=== PATIENT | male | born 1965 | race Caucasian/White ===

== ENCOUNTER 2021-02-01 07:04 | Observation (INO) ==
[2021-02-01] MEDS ORDERED: ONDANSETRON INJ 2 MG/ML 2 ML VIAL IV STA (07:22)
[2021-02-01] MEDS ORDERED: SODIUM CHLORIDE 0.9% 1000ML 1,000 ML IV ONE ×2 (07:22→09:26)
[2021-02-01] MEDS ORDERED: MoRPHine SULFATE 10 MG/ML CARP/VIAL IV STA (07:22)
[2021-02-01 07:35] LABS: Basophils # (auto) 0.02 K/uL (0-0.2); Basophils % (auto) 0.1 %; Eosinophils # (auto) 0.01 K/uL (0-0.5); Eosinophils % (auto) 0.1 %; Hematocrit (blood only) 45.7 % (42-52); Immature Granulocytes # (auto) 0.02 K/uL (0.00-0.02); Immature Granulocytes % (auto) 0.1 %; Lymphocytes # (auto) 0.88 K/uL (1.2-3.4); Lymphocytes % (auto) 5.8 %; Mean Corpuscular Hemoglobin 32.5 pg (25-34); Mean Corpuscular Volume 92.9 fL (80-100); Mean Platelet Volume 10.1 fL (7.4-10.4); Monocytes % (auto) 3.3 %; Neutrophils # (auto) 13.87 K/uL (1.4-6.5); Neutrophils % (auto) 90.6 %; Platelet Count 250 K/uL (130-400); RDW Coefficient of Variation 13.8 % (11.5-14.5); RDW Standard Deviation 46.6 fL (36.4-46.3); Red Blood Count 4.92 M/uL (4.7-6.1)
[2021-02-01] MEDS ORDERED: MoRPHine SULFATE 4 MG/ML 1 ML CARP\\VIAL ONE (07:39)
[2021-02-01] MEDS ORDERED: MoRPHine SULFATE 2 MG/ML CARP ONE (07:39)
--- NOTE | 2021-02-01 07:44 | XRay Report ---
XR chest 1V portable CLINICAL HISTORY: Atypical chest pain. COMPARISON STUDY: Chest radiograph March 01, 2017.Z FINDINGS: Lung volumes are normal. There is no pneumothorax or pleural effusion. No consolidation or evidence for pulmonary edema. Cardiac size is normal. There is a suspected hiatal hernia. IMPRESSION: 1. No acute cardiopulmonary findings. 2. Suspected hiatal hernia. ACT 112: Negative or not required by law. Electronically signed by: Mat Ortega M.D. 02/01/2021 7:42 AM
--- NOTE | 2021-02-01 07:52 | Emergency Department Note ---
History of Present Illness General Chief complaint: Chest Pain Stated complaint: chest pain,hard to breathe Time Seen by Provider: 02/01/21 07:10 Source: patient Mode of arrival: ambulatory Limitations: no limitations History of Present Illness Maximum Pain Intensity: 10 This patient is a 55-year-old male who presents to the emergency department for evaluation of chest pain, abdominal pain and vomiting. Patient reports that his symptoms started last night, about 12 hours prior to arrival. He states that he was sitting on the couch when his symptoms started. He had eaten corned beef and cabbage for dinner. He initially developed nausea, then developed some pain in his chest/abdomen and shortness of breath. He reports that he has right- sided abdominal pain, left-sided chest pain and nausea/vomiting. He states that movement makes his pain worse. He rates his discomfort a 10/10. He states that he was feeling okay over the past few days up until yesterday evening. He denies any cardiac history but does report a family history of [place] in his father and grandfather. Patient is not a smoker. He drinks alcohol socially and uses marijuana on occasion. Most recent marijuana use was 1.5 weeks ago. Patient denies fevers, cough, diarrhea, headaches or neck pain. Home Medications Medication Instructions Recorded Confirmed Type No Known Home Medications 02/01/21 02/01/21 History Allergies Allergy/AdvReac Type Severity Reaction Status Date / Time No Known Allergies Allergy Unknown Verified 02/01/21 07:41 Past Med/Surg History Medical History No significant past medical history Surgical History History of eye removal Traumatic injury to right Social History Smoking Status: Never smoker Hx Alcohol Use: Yes (socially) Alcohol type: hard liquor Hx Substance Use: Yes Non-Prescribed Medications: Marijuana Preferred Language: Hungarian Communication Ability: Effective [employer] Required: No Beliefs That Will Affect Care: None Current Living Situation: Other Current Living Situation Comment: room mate Other Information That Helps Us Care for You: No Feels Safe at Home: Yes Safety Concerns: Feels Safe At This Time Assistive Devices: None Review of Systems A total of 10 systems reviewed and were otherwise negative Physical Exam Vital Signs Vital Signs - 24 hr 02/01/21 07:08 02/01/21 07:09 02/01/21 07:17 Temperature 36.6 C Temperature Source Temporal Artery Scan Oral Pulse Rate 95 H 96 H Pulse Rate from SpO2 Sensor Respiratory Rate 20 19 Respiratory Effort / Characteristics Non-Labored Respiratory Depth Normal Normal Blood Pressure 155/90 H 159/99 H Blood Pressure Mean 111 119 Pulse Oximetry 98 Oxygen Delivery Method Room Air Room Air Sepsis Recent Fever Within 48 Hours No Sepsis New/Unexplained Change in Mental Status N/A Sepsis Action Taken by Nursing No Action Required 02/01/21 07:19 02/01/21 07:22 02/01/21 07:30 Temperature Temperature Source Pulse Rate 91 H 99 H Pulse Rate from SpO2 Sensor Respiratory Rate 20 Respiratory Effort / Characteristics Respiratory Depth Blood Pressure Blood Pressure Mean Pulse Oximetry Oxygen Delivery Method Room Air Sepsis Recent Fever Within 48 Hours Sepsis New/Unexplained Change in Mental Status Sepsis Action Taken by Nursing 02/01/21 08:00 02/01/21 08:30 02/01/21 09:00 Temperature Temperature Source Pulse Rate 102 H 88 115 H Pulse Rate from SpO2 Sensor Respiratory Rate 17 17 Respiratory Effort / Characteristics Respiratory Depth Blood Pressure Blood Pressure Mean Pulse Oximetry Oxygen Delivery Method Sepsis Recent Fever Within 48 Hours Sepsis New/Unexplained Change in Mental Status Sepsis Action Taken by Nursing 02/01/21 09:41 02/01/21 09:42 02/01/21 09:43 Temperature Temperature Source Pulse Rate 99 H 102 H 97 H Pulse Rate from SpO2 Sensor Respiratory Rate 5 L 19 14 Respiratory Effort / Characteristics Respiratory Depth Blood Pressure 142/118 H Blood Pressure Mean 126 Pulse Oximetry Oxygen Delivery Method Sepsis Recent Fever Within 48 Hours Sepsis New/Unexplained Change in Mental Status Sepsis Action Taken by Nursing 02/01/21 09:53 02/01/21 09:54 02/01/21 10:00 Temperature Temperature Source Pulse Rate 106 H 97 H 90 Pulse Rate from SpO2 Sensor Respiratory Rate 15 22 18 Respiratory Effort / Characteristics Respiratory Depth Blood Pressure 151/93 H Blood Pressure Mean 112 Pulse Oximetry Oxygen Delivery Method Sepsis Recent Fever Within 48 Hours Sepsis New/Unexplained Change in Mental Status Sepsis Action Taken by Nursing 02/01/21 10:30 02/01/21 10:31 02/01/21 11:00 Temperature Temperature Source Pulse Rate 96 H 83 Pulse Rate from SpO2 Sensor Respiratory Rate 18 16 Respiratory Effort / Characteristics Respiratory Depth Blood Pressure 120/79 Blood Pressure Mean 92 Pulse Oximetry Oxygen Delivery Method Sepsis Recent Fever Within 48 Hours Sepsis New/Unexplained Change in Mental Status Sepsis Action Taken by Nursing 02/01/21 11:15 02/01/21 11:30 02/01/21 11:31 Temperature Temperature Source Pulse Rate Pulse Rate from SpO2 Sensor 99 H 112 H Respiratory Rate Respiratory Effort / Characteristics Respiratory Depth Blood Pressure 146/107 H 159/117 H Blood Pressure Mean 120 131 Pulse Oximetry 96 95 Oxygen Delivery Method Sepsis Recent Fever Within 48 Hours Sepsis New/Unexplained Change in Mental Status Sepsis Action Taken by Nursing 02/01/21 12:00 02/01/21 12:01 02/01/21 12:30 Temperature Temperature Source Pulse Rate Pulse Rate from SpO2 Sensor 94 H 90 103 H Respiratory Rate Respiratory Effort / Characteristics Respiratory Depth Blood Pressure 132/77 133/89 Blood Pressure Mean 95 103 Pulse Oximetry 95 98 96 Oxygen Delivery Method Sepsis Recent Fever Within 48 Hours Sepsis New/Unexplained Change in Mental Status Sepsis Action Taken by Nursing 02/01/21 12:31 02/01/21 13:00 02/01/21 13:01 Temperature Temperature Source Pulse Rate Pulse Rate from SpO2 Sensor 91 H 88 88 Respiratory Rate Respiratory Effort / Characteristics Respiratory Depth Blood Pressure 133/94 Blood Pressure Mean 107 Pulse Oximetry 98 98 96 Oxygen Delivery Method Sepsis Recent Fever Within 48 Hours Sepsis New/Unexplained Change in Mental Status Sepsis Action Taken by Nursing 02/01/21 13:30 Temperature Temperature Source Pulse Rate Pulse Rate from SpO2 Sensor 92 H Respiratory Rate Respiratory Effort / Characteristics Respiratory Depth Blood Pressure Blood Pressure Mean Pulse Oximetry 94 Oxygen Delivery Method Sepsis Recent Fever Within 48 Hours Sepsis New/Unexplained Change in Mental Status Sepsis Action Taken by Nursing VITALS: Vitals are noted on the nurse's note and reviewed by myself. GENERAL: This is a 55-year-old male, sitting up in bed, dry heaving. SKIN: The skin was without rashes. EARS: External auditory canals clear, tympanic membranes pearly moore without erythema or effusion bilaterally. 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 Left pupil is reactive to light and accommod ation.. No scleral icterus. MOUTH: Mucous membranes moist. Tonsils are not enlarged. Pharynx without erythema or exudate. NECK: Supple without nuchal rigidity. No lymphadenopathy. HEART: Regular rate and rhythm without murmurs gallops or rubs. LUNGS: Clear to auscultation bilaterally without wheezes, rales or rhonchi. ABDOMEN: Positive bowel sounds x 4. Soft, tenderness to palpation in the right lower quadrant and right upper quadrant. No guarding or rebound tenderness. NEURO: Patient was alert and oriented to person place and time. Course Administered Medications Morphine Sulfate (Morphine Sulfate 4 Mg/Ml 1 Ml Carp\Vial) 4 mg IV Q30M PRN PRN Reason: Pain Stop: 02/15/21 13:18 Last Admin: 02/01/21 14:01 Dose: 4 mg Documented by: [id number] Discontinued Medications Al Hydrox/Mg Hydrox/Simethicone (Gi Cocktail Ed Use) 1 dose PO ONE ONE Stop: 02/01/21 09:49 Last Admin: 02/01/21 09:55 Dose: 1 dose Documented by: [id number] Capsaicin (Capsaicin Cr 0.075% 60 Gm Tube) 1 appln EXT ONE STA Stop: 02/01/21 12:28 Last Admin: 02/01/21 14:04 Dose: Not Given Documented by: [id number] Sodium Chloride (Nss 1000ml) 1,000 mls @ 999 mls/hr IV .Q1H1M ONE Stop: 02/01/21 08:22 Last Infusion: 02/01/21 09:00 Dose: 0 mls/hr Documented by: [id number] Admin: 02/01/21 07:41 Dose: 999 mls/hr Documented by: [id number] Sodium Chloride (Nss 1000ml) 1,000 mls @ 999 mls/hr IV .Q1H1M ONE Stop: 02/01/21 10:26 Last Infusion: 02/01/21 11:07 Dose: 0 mls/hr Documented by: [id number] Admin: 02/01/21 09:56 Dose: 999 mls/hr Documented by: [id number] Promethazine HCl (Phenergan) 12.5 mg in 50.5 mls @ 202 mls/hr IV NOW STA Stop: 02/01/21 10:02 Last Infusion: 02/01/21 10:10 Dose: 0 mls/hr Documented by: [id number] Admin: 02/01/21 09:55 Dose: 202 mls/hr Documented by: [id number] Famotidine (Pepcid 20mg Iv Push) 20 mg in 5 mls @ 2.5 mls/min IV NOW STA Stop: 02/01/21 11:09 Last Admin: 02/01/21 11:14 Dose: 2.5 mls/min Documented by: [id number] Pantoprazole Sodium 40 mg/ (Syringe) 10 mls @ 5 mls/min IV NOW ONE Stop: 02/01/21 13:31 Last Admin: 02/01/21 13:36 Dose: 5 mls/min Documented by: [id number] Lorazepam (Ativan) 1 mg in 2 mls @ 2 mls/min IV NOW STA Stop: 02/01/21 13:11 Last Admin: 02/01/21 13:26 Dose: 2 mls/min Documented by: [id number] Ioversol (Ioversol 100ml) 94 ml IV ONCE ONE Stop: 02/01/21 09:39 Last Admin: 02/01/21 09:39 Dose: 94 ml Documented by: [id number] Morphine Sulfate (Morphine Sulfate 10 Mg/Ml Carp/Vial) 6 mg IV NOW STA Stop: 02/01/21 07:23 Last Admin: 02/01/21 07:42 Dose: Not Given Documented by: [id number] Morphine Sulfate (Morphine Sulfate 4 Mg/Ml 1 Ml Carp\Vial) Confirm Administered Dose 4 mg .ROUTE .STK-MED ONE Stop: 02/01/21 07:40 Last Admin: 02/01/21 07:41 Dose: 4 mg Documented by: [id number] Morphine Sulfate (Morphine Sulfate 2 Mg/Ml Carp) Confirm Administered Dose 2 mg .ROUTE .STK-MED ONE Stop: 02/01/21 07:40 Last Admin: 02/01/21 07:41 Dose: 2 mg Documented by: [id number] Ondansetron HCl (Ondansetron Inj 2 Mg/Ml 2 Ml Vial) 4 mg IV NOW STA Stop: 02/01/21 07:23 Last Admin: 02/01/21 07:41 Dose: 4 mg Documented by: [id number] Medical Decision Making Differential Diagnosis Differential diagnosis includes acute coronary syndrome, pulmonary embolism, pneumothorax, pericarditis, myocarditis, endocarditis, anxiety, musculoskeletal pain, GERD, costochondritis, pneumonia, among others. Home Medications Current Medication List: was personally reviewed by me Laboratory Data Attestation: I reviewed the patient's lab results. Result diagrams: 02/01/21 07:20 02/01/21 07:20 Lab Results 02/01/21 02/01/21 02/01/21 Range/Units 07:20 07:20 09:35 WBC 15.30 H (4.8-10.8) K/uL RBC 4.92 (4.7-6.1) M/uL Hgb 16.0 (14.0-18.0) g/dL Hct 45.7 (42-52) % MCV 92.9 (80-100) fL MCH 32.5 (25-34) pg MCHC 35.0 (32-36) g/dL RDW Std Deviation 46.6 H (36.4-46.3) fL RDW Coeff of Benigno 13.8 (11.5-14.5) % Plt Count 250 (130-400) K/uL MPV 10.1 (7.4-10.4) fL Immature Gran % (Auto) 0.1 % Neut % (Auto) 90.6 % Lymph % (Auto) 5.8 % Jerome % (Auto) 3.3 % Eos % (Auto) 0.1 % Baso % (Auto) 0.1 % Neut # (Auto) 13.87 H (1.4-6.5) K/uL Lymph # (Auto) 0.88 L (1.2-3.4) K/uL Jerome # (Auto) 0.50 (0.11-0.59) K/uL Eos # (Auto) 0.01 (0-0.5) K/uL Baso # (Auto) 0.02 (0-0.2) K/uL Immature Gran # (Auto) 0.02 (0.00-0.02) K/uL Sodium 139 (136-145) mmol/L Potassium 4.3 (3.5-5.1) mmol/L Chloride 107 (98-107) mmol/L Carbon Dioxide 21 (21-32) mmol/L Anion Gap 12.0 H (3-11) BUN 8 (7-18) mg/dl Creatinine 1.43 H (0.6-1.4) mg/dl Est Cr Clr Drug Dosing 65.8 ml/min Est GFR ( Amer) 64.3 Est GFR (Non-Af Amer) 55.5 BUN/Creatinine Ratio 5.6 L (10-20) Glucose 152 H (70-99) mg/dl Calcium 10.6 H (8.5-10.1) mg/dl Total Bilirubin 0.4 (0.2-1) mg/dl AST 16 (15-37) U/L ALT 30 (12-78) U/L Alkaline Phosphatase 102 (45-117) U/L Troponin I < 0.015 (0-0.045) ng/ml Total Protein 8.1 (6.4-8.2) gm/dl Albumin 4.6 (3.4-5.0) gm/dl Globulin 3.5 (2.5-4.0) gm/dl Albumin/Globulin Ratio 1.3 (0.9-2) Lipase 110 (73-393) U/L Urine Color Yellow Urine Appearance Clear (Clear) Urine pH 6.0 (4.5-7.5) Ur Specific [place] 1.030 (1.000-1.030) Urine Protein 1+ H (Negative) Urine Glucose (UA) Negative (Negative) Urine Ketones 1+ H (Negative) Urine Blood Negative (Negative) Urine Nitrite Negative (Negative) Urine Bilirubin Negative (Negative) Urine Urobilinogen Negative (Negative) Ur Leukocyte Esterase Negative (Negative) Urine WBC (Auto) 0 (0-5) /hpf Urine RBC (Auto) 0-4 (0-4) /hpf U Hyaline Cast (Auto) 1-5 (0-5) /lpf U Epithel Cells (Auto) 5-10 H (0-5) /lpf Urine Bacteria (Auto) Negative (Negative) Urine Opiates Screen (Neg) Ur Methadone, Qual (Neg) Urine Barbiturates (Neg) Ur Phencyclidine (PCP) (Neg) U Amphetamin/Meth Scrn (Neg) MDMA (Ecstasy) Screen (Neg) U Benzodiazepines Scrn (Neg) Ur Cocaine Metabolite (Neg) U Marijuana (THC) Screen (Neg) COVID-19 Eval Order SARS-CoV-2, RNA, NAAT (NEGATIVE) 02/01/21 02/01/21 02/01/21 Range/Units 09:35 12:45 12:45 WBC (4.8-10.8) K/uL RBC (4.7-6.1) M/uL Hgb (14.0-18.0) g/dL Hct (42-52) % MCV (80-100) fL MCH (25-34) pg MCHC (32-36) g/dL RDW Std Deviation (36.4-46.3) fL RDW Coeff of Benigno (11.5-14.5) % Plt Count (130-400) K/uL MPV (7.4-10.4) fL Immature Gran % (Auto) % Neut % (Auto) % Lymph % (Auto) % Jerome % (Auto) % Eos % (Auto) % Baso % (Auto) % Neut # (Auto) (1.4-6.5) K/uL Lymph # (Auto) (1.2-3.4) K/uL Jerome # (Auto) (0.11-0.59) K/uL Eos # (Auto) (0-0.5) K/uL Baso # (Auto) (0-0.2) K/uL Immature Gran # (Auto) (0.00-0.02) K/uL Sodium (136-145) mmol/L Potassium (3.5-5.1) mmol/L Chloride (98-107) mmol/L Carbon Dioxide (21-32) mmol/L Anion Gap (3-11) BUN (7-18) mg/dl Creatinine (0.6-1.4) mg/dl Est Cr Clr Drug Dosing ml/min Est GFR ( Amer) Est GFR (Non-Af Amer) BUN/Creatinine Ratio (10-20) Glucose (70-99) mg/dl Calcium (8.5-10.1) mg/dl Total Bilirubin (0.2-1) mg/dl AST (15-37) U/L ALT (12-78) U/L Alkaline Phosphatase (45-117) U/L Troponin I (0-0.045) ng/ml Total Protein (6.4-8.2) gm/dl Albumin (3.4-5.0) gm/dl Globulin (2.5-4.0) gm/dl Albumin/Globulin Ratio (0.9-2) Lipase (73-393) U/L Urine Color Urine Appearance (Clear) Urine pH (4.5-7.5) Ur Specific [place] (1.000-1.030) Urine Protein (Negative) Urine Glucose (UA) (Negative) Urine Ketones (Negative) Urine Blood (Negative) Urine Nitrite (Negative) Urine Bilirubin (Negative) Urine Urobilinogen (Negative) Ur Leukocyte Esterase (Negative) Urine WBC (Auto) (0-5) /hpf Urine RBC (Auto) (0-4) /hpf U Hyaline Cast (Auto) (0-5) /lpf U Epithel Cells (Auto) (0-5) /lpf Urine Bacteria (Auto) (Negative) Urine Opiates Screen Pos H (Neg) Ur Methadone, Qual Neg (Neg) Urine Barbiturates Neg (Neg) Ur Phencyclidine (PCP) Neg (Neg) U Amphetamin/Meth Scrn Neg (Neg) MDMA (Ecstasy) Screen Neg (Neg) U Benzodiazepines Scrn Neg (Neg) Ur Cocaine Metabolite Neg (Neg) U Marijuana (THC) Screen Pos H (Neg) [facility], [facility], NAAT NEGATIVE (NEGATIVE) Imaging Data Attestation: I personally reviewed and interpreted this imaging study as follows: Radiologist's Impression: XR chest 1V portable FINDINGS: Lung volumes are normal. There is no pneumothorax or pleural effusion. No consolidation or evidence for pulmonary edema. Cardiac size is normal. There is a suspected hiatal hernia. IMPRESSION: 1. No acute cardiopulmonary findings. 2. Suspected hiatal hernia. CT SCAN OF THE ABDOMEN AND PELVIS WITH IV CONTRAST FINDINGS: Lung bases: The heart is normal in size and without pericardial effusion. The lung bases are clear. There is a moderate hiatal hernia. Liver: The contrast-enhanced liver is normal in size, contour, and attenuation. There is no intrahepatic biliary ductal dilatation. The hepatic veins and portal veins are patent. Gallbladder: Unremarkable. Spleen: Normal in size and attenuation. Pancreas: Unremarkable. Adrenal glands: Unremarkable. Kidneys: The contrast enhanced kidneys are normal in size and without hydronephrosis. The kidneys enhance symmetrically. There are numerous renal cortical hypodensities. These are indeterminant, and the largest measures 1.7 cm as seen in the upper pole of the left kidney. Abdominal vasculature: The abdominal aorta is normal in course and caliber. Bowel: There is mild to moderate colonic diverticulosis without CT evidence of acute diverticulitis. No bowel obstruction is seen. The appendix is well- visualized and normal. Peritoneum: There is no intraperitoneal free air or abdominal ascites. Lymphadenopathy: None. Pelvic viscera: The bladder is decompressed and grossly unremarkable. The prostate and seminal vesicles are normal as visualized. Skeletal structures: There is mild lumbosacral spondylosis. A large posterior d isc osteophyte complex is seen at L4-L5. No lytic or blastic lesions are seen. IMPRESSION: 1. There are no acute infectious or inflammatory findings in the abdomen or pelvis. 2. Mild to moderate colonic diverticulosis without CT evidence of acute diverticulitis. 3. Indeterminant renal cortical hypodensities measure up to 1.7 cm. Follow-up with a nonemergent renal protocol CT or MRI is recommended for further assessment. 4. Moderate hiatal hernia. 5. Additional findings as above. ECG Data Attestation: I personally reviewed and interpreted this ECG as follows: Rate (beats per minute): 98 Rhythm: + normal sinus ECG Intervals/blocks: + Incomplete right bundle branch block ECG ST segments: + T-wave inversions Comparison ECG Date: no prior available MDM Narrative Continuous customer energy specialist: Order was placed for continuous customer energy specialist. Patient was placed on the customer energy specialist. Patient was noted to be in normal sinus rhythm at an initial rate of 105 bpm. The patient is a 55-year-old male who presents today complaining of abdominal pain, chest pain and vomiting. Symptoms started approximately 12 hours ago. Labs revealed a leukocytosis of 15,000, no anemia. Creatinine mildly elevated 1.43, no prior labs for comparison. Otherwise no significant concerning electrolyte abnormalities. Urinalysis was not suggestive of infection. CT scan with no acute infectious/inflammatory findings, did show a hiatal hernia as well as other incidental findings. Symptoms could be due to severe ga stritis/esophagitis as patient seems to have a history of this. Certainly marijuana induced cyclical vomiting could play a role in symptoms as well. Patient observed for several hours and treated with multiple doses of antiemetics, Pepcid, GI cocktail and morphine without relief of any symptoms. He was given something to drink and had persistent vomiting. Given this, patient could not reasonably be discharged home. The case was discussed with the [facility] hospitalist service, who agreed to evaluate the patient for further care. Impression & Plan Intractable epigastric abdominal pain, Vomiting Discharge Plan Visit Data Chief Complaint: Chest Pain Stated Complaint: chest pain,hard to breathe ED Provider: Alfredo Dumont ED Midlevel Provider: Jen Steele Discharge Problem: Intractable epigastric abdominal pain, Vomiting Patient Disposition: Admitted As Inpatient Discharge Instructions Interventions: ED Discharge Assessment Last Done: 02/01/21 14:39 Discharge Problem: Vomiting Qualifiers: Vomiting type: unspecified Vomiting Intractability: intractable Nausea presence: with nausea Qualified Code(s): R11.2 - Nausea with vomiting, unspecified
[2021-02-01 08:10] LABS: Albumin Level 4.6 gm/dl (3.4-5.0); Aspartate Aminotransferase 16 U/L (15-37); BUN Creatinine Ratio 5.6 (10-20); Blood Urea Nitrogen 8 mg/dl (7-18); Calcium 10.6 mg/dl (8.5-10.1); Carbon Dioxide 21 mmol/L (21-32); Chloride 107 mmol/L (98-107); Creatinine Clr Calc Pharmacy 65.8 ml/min; Est GFR (African American) 64.3; Est GFR (Non-African American) 55.5; Glucose 152 mg/dl (70-99); Lipase 110 U/L (73-393); Potassium 4.3 mmol/L (3.5-5.1); Sodium 139 mmol/L (136-145)
[2021-02-01 08:15] LABS: Alanine Aminotransferase 30 U/L (12-78); Albumin Globulin Ratio 1.3 (0.9-2); Alkaline Phosphatase 102 U/L (45-117); Bilirubin,Total 0.4 mg/dl (0.2-1); Globulin 3.5 gm/dl (2.5-4.0); Total Protein 8.1 gm/dl (6.4-8.2); Troponin I < 0.015 ng/ml (0-0.045)
[2021-02-01] MEDS ORDERED: OPTIRAY 320 100ml IV ONE (09:38)
[2021-02-01] MEDS ORDERED: PROMETHAZINE 12.5 MG/50.5 ML BAG IV STA (09:48)
[2021-02-01] MEDS ORDERED: GI COCKTAIL ED USE PO ONE (09:48)
--- NOTE | 2021-02-01 09:57 | CT Scan Report ---
CT SCAN OF THE ABDOMEN AND PELVIS WITH IV CONTRAST CLINICAL HISTORY: Right-sided abdominal pain. Vomiting. COMPARISON STUDY: Abdominal ultrasound dated 03/02/2007. TECHNIQUE: Following the IV administration of 94 cc of Optiray 320, CT scan of the abdomen and pelvi s is performed from the lung bases to the proximal femora. Images are reviewed in the axial, sagittal , and coronal planes. IV contrast was administered without complication. A dose lowering technique wa s utilized adhering to the principles of ALARA. CT DOSE: 903.06 mGycm FINDINGS: Lung bases: The heart is normal in size and without pericardial effusion. The lung bases are clear. T here is a moderate hiatal hernia. Liver: The contrast-enhanced liver is normal in size, contour, and attenuation. There is no intrahepa tic biliary ductal dilatation. The hepatic veins and portal veins are patent. Gallbladder: Unremarkable. Spleen: Normal in size and attenuation. Pancreas: Unremarkable. Adrenal glands: Unremarkable. Kidneys: The contrast enhanced kidneys are normal in size and without hydronephrosis. The kidneys enh ance symmetrically. There are numerous renal cortical hypodensities. These are indeterminant, and the largest measures 1.7 cm as seen in the upper pole of the left kidney. Abdominal vasculature: The abdominal aorta is normal in course and caliber. Bowel: There is mild to moderate colonic diverticulosis without CT evidence of acute diverticulitis. No bowel obstruction is seen. The appendix is well-visualized and normal. Peritoneum: There is no intraperitoneal free air or abdominal ascites. Lymphadenopathy: None. Pelvic viscera: The bladder is decompressed and grossly unremarkable. The prostate and seminal vesicl es are normal as visualized. Skeletal structures: There is mild lumbosacral spondylosis. A large posterior disc osteophyte complex is seen at L4-L5. No lytic or blastic lesions are seen. IMPRESSION: 1. There are no acute infectious or inflammatory findings in the abdomen or pelvis. 2. Mild to moderate colonic diverticulosis without CT evidence of acute diverticulitis. 3. Indeterminant renal cortical hypodensities measure up to 1.7 cm. Follow-up with a nonemergent susannah l protocol CT or MRI is recommended for further assessment. 4. Moderate hiatal hernia. 5. Additional findings as above. ACT 112: Positive. There are findings on this exam that require communication between the performing entity and the patient following Patient Test Result Information Act ([place] Act 112) guidelines. Electronically signed by: Thomas Kerr M.D. 02/01/2021 9:56 AM
[2021-02-01 10:10] LABS: Appearance Urine Clear (Clear); Bacteria Urine Automated Negative (Negative); Bilirubin Urine Negative (Negative); Blood Urine Negative (Negative); Color Urine Yellow; Glucose Urine UA Negative (Negative); Ketones Urine 1+ (Negative); Leukocyte Esterase Urine Negative (Negative); Nitrite Urine Negative (Negative); Protein Urine 1+ (Negative); RBC Urine Automated 0-4 /hpf (0-4); Urobilinogen Urine Negative (Negative); WBC Urine Automated 0 /hpf (0-5)
[2021-02-01] MEDS ORDERED: FAMOTIDINE 20MG IV PUSH 20 MG/5 ML SYR IV STA (11:08)
[2021-02-01] MEDS ORDERED: CAPSAICIN CR 0.075% 60 GM TUBE EXT STA (12:27)
--- NOTE | 2021-02-01 12:30 | History & Physical Report ---
Date of Service February 01, 2021 Assessment & Plan (1) Hiatal hernia with gastroesophageal reflux disease and esophagitis: Famotidine 20 mg IV given in ER and will continue this in addition to pantoprazole 40 mg IV twice daily. No significant relief with GI cocktail in ER palpation Consult gastroenterology (2) Chest pain: No hypoxia to suggest pulmonary embolism Pulses equal bilaterally and no widened mediastinum to suggest aortic dissection Troponin negative for myocardial infarction Suspect secondary to hiatal hernia and reflux. See treatment above. Treat pain with morphine 4 mg IV every 2 hourly (3) Nausea & vomiting: Suspect secondary to hiatal hernia and GERD. Continue ondansetron and Phenergan as needed. Once patient is more settled will trial NG tube. (4) Abdominal pain: No acute pathology seen on CT abdomen pelvis. Suspect this muscular risk secondary to nausea and vomiting as above. (5) Leukocytosis: Suspect stress reaction without left shift. Repeat with a.m. labs. (6) Elevated serum creatinine: Unknown baseline. Continue IV fluids while n.p.o. (7) Abnormal abdominal CT scan: Follow-up CT/MRI renal protocol as an outpatient for indeterminate renal cortical hypodensities. (8) DVT prophylaxis: Low risk therefore not indicated Admission and Anticipated Discharge Date Admission Date: February 01, 2021 History of Present Illness Chief Complaint: Nausea, vomiting, abdominal pain Primary Care Provider: Nelida Bryant MD Vlad Bravo is a 55-year-old male who presents to the ER with abdominal pain, intractable nausea and vomiting. He reports severe 10/10 chest pain coming on at 6:30 PM last night on the left side of his chest without radiation followed shortly by nausea and vomiting. This pain has been constant throughout the night and is continuing in the emergency room with any relief from morphine given. He he ate a corn beef and cabbage male 2 to 3 hours prior to the pain last night. He does note a similar episode 7 to 8 years ago which he thinks was secondary to his blood pressure. He denies any current medical problems such as diabetes, hypertension, hyperlipidemia. He does smoke marijuana 1-2 times a week for the last 20 years. He reports no prior episodes of cyclic vomiting syndrome related to this in the last smoked marijuana 1.5 weeks ago. In the ER CT abdomen pelvis was relatively unremarkable for acute inflammatory or infectious causes of his abdominal pain. However was notable for a moderate hiatal hernia which was incompletely imaged given no CT of his chest. Incidentally noted indeterminant renal cortical hypodensities measuring up to 1.7 cm -recommended nonemergent renal protocol CT or MRI for further assessment. Despite fluid resuscitation, ondansetron, Phenergan, morphine he continues to have nausea, vomiting, abdominal/chest pain therefore was referred to medicine for admission ongoing management of this. Allergies Allergy/AdvReac Type Severity Reaction Status Date / Time No Known Allergies Allergy Unknown Verified 02/01/21 07:41 Home Medications Medication Instructions Recorded Confirmed Type No Known Home Medications 02/01/21 02/01/21 History Past Med/Surg History Medical History No significant past medical history Surgical History History of eye removal Traumatic injury to right Social History Smoking Status: Never smoker Hx Alcohol Use: Yes (socially) Hx Substance Use: Yes Non-Prescribed Medications: Marijuana Feels Safe at Home: Yes Review of Systems Review of Systems: All systems reviewed & are unremarkable except as noted in HPI & below Physical Exam Constitutional: + acute distress (Chest discomfort) and + ill appearing; + not well nourished Eyes: Right prosthetic eye ENMT: Mouth: + dry oral mucous membranes, + poor dentition and + chipped teeth Neck: trachea midline Respiratory: normal respiratory effort, lungs clear to auscultation Gastrointestinal (Abdomen): Inspection/Auscultation: abdomen normal to inspection and normal bowel sounds Percussion/Palpation: + abdomen tender (Generalized), + guarding and abdomen soft; abdomen not rigid Musculoskeletal: no cyanosis or clubbing, extremities motor strength 5/5 Skin: no rashes, warm and dry Neurologic: moves all extremities and awake; not confused Psychiatric: A+Ox3, euthymic affect Genitourinary: no CVA tenderness Results & Data Results & Data ([facility]) Vital Signs (Past 12 Hours) Vital Signs Temp Pulse Resp BP Pulse Ox 02/01/21 12:01 98 02/01/21 12:00 132/77 95 02/01/21 11:31 95 02/01/21 11:30 159/117 H 02/01/21 11:15 146/107 H 96 02/01/21 11:00 83 02/01/21 10:31 16 120/79 02/01/21 10:30 96 H 18 02/01/21 10:00 90 18 02/01/21 09:54 97 H 22 02/01/21 09:53 106 H 15 151/93 H 02/01/21 09:43 97 H 14 02/01/21 09:42 102 H 19 142/118 H 02/01/21 09:41 99 H 5 L 02/01/21 09:00 115 H 02/01/21 08:30 88 17 02/01/21 08:00 102 H 17 02/01/21 07:30 99 H 02/01/21 07:19 91 H 20 02/01/21 07:17 96 H 19 159/99 H 02/01/21 07:08 36.6 C 95 H 20 155/90 H 98 Diagnostic Findings XR chest 1V portable IMPRESSION: 1. No acute cardiopulmonary findings. 2. Suspected hiatal hernia. CT SCAN OF THE ABDOMEN AND PELVIS WITH IV CONTRAST IMPRESSION: 1. There are no acute infectious or inflammatory findings in the abdomen or pelvis. 2. Mild to moderate colonic diverticulosis without CT evidence of acute diverticulitis. 3. Indeterminant renal cortical hypodensities measure up to 1.7 cm. Follow-up with a nonemergent renal protocol CT or MRI is recommended for further assessment. 4. Moderate hiatal hernia. 5. Additional findings as above. Medications Administered ER medications given: NSS 2-hour bolus Ondansetron 4 mg IV Morphine 4 + 2 mg IV Promethazine 12.5 mg IV Maalox 1 dose Famotidine 20 mg IV ECG Indication: abdominal pain and chest pain Rate (beats per minute): 98 Findings: + other (Nonspecific T wave abnormality throughout) and + RBBB (Incomplete) Comparison ECG Date: no prior available Code Status & VTE Plan Code Status Full VTE Prophylaxis Plan VTE Prophylaxis will be ordered: No PG Care Time/CCT Total # of Minutes Spent Total Time Spent with Patient: Total time spent is greater than 50% in coordination of care (as documented) at patient's floor/unit and/or counseling patient: Coding Level of Care Code 77591 OBS Care - Level 3 Diagnoses Hiatal hernia with gastroesophageal reflux disease and esophagitis K44.9; K21.00 Chest pain R07.9 Nausea & vomiting R11.2 Abdominal pain R10.84 Abdominal location: generalized Leukocytosis D72.828 Leukocytosis type: other Elevated serum creatinine R79.[address] scan R93.5 DVT prophylaxis Z29.9 (1) Leukocytosis Leukocytosis type: other Qualified Code(s): D72.828 - Other elevated white blood cell count (2) Abdominal pain Abdominal location: generalized Qualified Code(s): R10.84 - Generalized abdominal pain
[2021-02-01] MEDS ORDERED: LORazepam 1 MG/2 ML VIAL IV STA (13:10)
[2021-02-01] MEDS ORDERED: MoRPHine SULFATE 4 MG/ML 1 ML CARP\\VIAL IV PRN (13:19)
[2021-02-01] MEDS ORDERED: PANTOprazole 40 MG in SYRINGE 0 ML IV ONE (13:30)
[2021-02-01 14:13] LABS: Amphetamines+Metham, Urine Neg (Neg); Barbiturates, Urine Neg (Neg); Benzodiazepine, Urine Neg (Neg); Cocaine, Urine Neg (Neg); MDMA (Ecstacy), Urine Neg (Neg); Methadone, Urine Neg (Neg); Opiate, Urine Pos (Neg); Phencyclidine, Urine Neg (Neg)
[2021-02-01] MEDS ORDERED: ACETAMINOPHEN 1,000 MG/100 ML VIAL IV PRN (16:04)
[2021-02-01] MEDS ORDERED: ONDANSETRON INJ 2 MG/ML 2 ML VIAL IV PRN (16:04)
[2021-02-01] MEDS: LACTATED RINGER'S 1,000 ML IV SCH ×2 (16:28→23:10)
[2021-02-01] MEDS ORDERED: PHARMACY GLYCEMIC MGMT CONSULT PRN (21:00)
[2021-02-02] MEDS: LACTATED RINGER'S 1,000 ML IV SCH (06:31)
--- NOTE | 2021-02-02 06:45 | Electrocardiogram Report ---
Test Reason : Blood Pressure : / mmHG Vent. Rate : 098 BPM Atrial Rate : 098 BPM P-R Int : 122 ms QRS Dur : 106 ms QT Int : 358 ms P-R-T Axes : 019 001 035 degrees QTc Int : 457 ms Normal sinus rhythm Incomplete right bundle branch block Nonspecific T wave abnormality Abnormal ECG No previous ECGs available Confirmed by Jordan Ng [id number]) on 02/02/2021 6:44:48 AM Referred By: REFERRED SELF Confirmed By:Jordan Ng
[2021-02-02 09:11] LABS: Basophils # (auto) 0.03 K/uL (0-0.2); Basophils % (auto) 0.3 %; Eosinophils # (auto) 0.02 K/uL (0-0.5); Eosinophils % (auto) 0.2 %; Hematocrit (blood only) 42.9 % (42-52); Hemoglobin 14.7 g/dL (14.0-18.0); Immature Granulocytes # (auto) 0.02 K/uL (0.00-0.02); Immature Granulocytes % (auto) 0.2 %; Lymphocytes # (auto) 1.77 K/uL (1.2-3.4); Lymphocytes % (auto) 15.7 %; Mean Corpuscular Hemoglobin 32.1 pg (25-34); Mean Corpuscular Hgb Conc 34.3 g/dL (32-36); Mean Corpuscular Volume 93.7 fL (80-100); Mean Platelet Volume 9.9 fL (7.4-10.4); Monocytes # (auto) 0.63 K/uL (0.11-0.59); Monocytes % (auto) 5.6 %; Neutrophils # (auto) 8.81 K/uL (1.4-6.5); Platelet Count 183 K/uL (130-400); RDW Coefficient of Variation 13.9 % (11.5-14.5); RDW Standard Deviation 47.1 fL (36.4-46.3); Red Blood Count 4.58 M/uL (4.7-6.1); White Blood Count 11.28 K/uL (4.8-10.8)
[2021-02-02 09:38] LABS: Albumin Globulin Ratio 1.1 (0.9-2); Albumin Level 3.4 gm/dl (3.4-5.0); BUN Creatinine Ratio 7.6 (10-20); Bilirubin,Total 0.7 mg/dl (0.2-1); Calcium 8.2 mg/dl (8.5-10.1); Creatinine Clr Calc Pharmacy 88.7 ml/min; Est GFR (African American) 92.4; Est GFR (Non-African American) 79.7; Potassium 3.6 mmol/L (3.5-5.1); Total Protein 6.4 gm/dl (6.4-8.2)
[2021-02-02 09:39] LABS: Chol HDL Ratio 4; Cholesterol 215 mg/dl (0-200); HDL Cholesterol 50 mg/dl; LDL Cholesterol Calculated 135 mg/dl; Triglycerides 151 mg/dl (0-150); VLDL Cholesterol 30 mg/dl
[2021-02-02 10:35] LABS: Estimated Average Glucose 108 mg/dl; Hemoglobin A1C 5.4 % (4.5-5.6)
--- NOTE | 2021-02-02 10:47 | Hospitalist Progress Note ---
Date of Service February 02, 2021 Assessment & Plan (1) Intractable epigastric abdominal pain: Mr. Vlad Bravo is a 55 y/o male h/o ventral hernia repair otherwise with no current chronic medical issues who presented for left chest pain, nausea, vomiting, diarrhea, and inability to maintain hydration from PO intake. Most likely etiology presumed is gastritis with esophagitis. Intractable epigastric abdominal pain. - Review of old EMR shows one visit for similar presentation in February 2007 with dx of gastritis. - Suspect symptoms are related to gastritis with esophagitis. - Many environmental factors that predispose him to reflux/gastritis: - hiatal hernia present, - swallows his chewing tobacco oral secretions which is not typical for an average user - discussed that chewing tobacco with spiting and now swallowing will still exacerbate reflux and worsen gastritis, nevertheless a decades long history of swallowing carcinogen. It is highly recommended that he stop chewing tobacco as this would be very important to help keep this from worsening or be acute on chronic reoccurrences. 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 Recommend to avoid in acute setting. - Alcohol intake and acidic sugary Twisted Tea beverages. - Suspect with adequate education and cessation from triggers that symptoms would significantly improve. - He has not been on any treatment prior to presentation with ant-acids/PPI/H2 adalberto. Discussed that will still experiencing discomfort while mucosa heals. - Yesterday received Pantoprazole PPI 40mg IV x 1 and also Pepcid 20mg IV x 1; there were no continuation orders placed for this morning for continued gastric acid suppression. Will resume Pepcid 20mg IV x 1 today. - GI was consulted on admission, consideration for possible EGD to evaluate for gastritis/etiology of current illness. Was made NPO since midnight. on IVF LR @ 150ml/hr. Clinical picture this morning does not indicate need for in- hospital GI consult as no indication for urgent/emergent EGD as no signs of blee ding. Plan will be to advise diet as tolerated and if can tolerate will go home on PPI with hospital follow up for resolution. - Has had morphine IV ordered for pain since when he was NPO, last required was yesterday (02/01) around 2pm. Does not appear to need further opioids for pain. Discussed that he will experience discomfort while stomach mucosa heals. Nausea and Vomiting - appeared improving with controlled nausea this AM and with decreased emesis frequency, this was while NPO. Failed oral challenge of full liquid diet and not safe for discharge home. Suspect gastric mucosa needs more time cool off from inflammation. Was treated after failing challenge with Zofran 4mg IV and morphine IV. - Suspect will resolve with treatment of underlying gastritis with Pepcid 20mg IV BID and Protonix 40mg PO BID. - Yesterday received Zofran 4mg IV in AM, then Promethazine 12.5mg IV yesterday morning as well. Was given Lorazepam 1mg IV at 2pm yesterday which he notes helped to improve nausea. - Suspect secondary to gastritis with multifactorial from displaced anatomy of hiatal hernia which causes functional physiology. Continue to monitor. Will need to ensure can take PO prior to discharge. - Will provide Zofran 4mg ODT on discharge. - If he has any recurrent nausea not responsive to Zofran overnight consider Phenergan 12.5mg IV as received while here. He notes Ativan yesterday improved nausea the most, but would prefer to avoid benzos if able to be relieved with traditional anti-emetics - Will trend BMP and replace any electrolyte losses if needed from vomiting. Alcohol Use - denies daily use but notes frequent use throughout the week. Notes he drinks Twisted Teas which have high alcohol content. Does not appear to abuse alcohol based on history; AST:ALT is not 2:1 or elevated. But if agitated overnight or has altered mental status. Consider alcohol withdrawal and treatment with Ativan IV. Last drink was approx 48 hours ago. I'm not concerned for alcohol abuse from his history, but wanted to add a comment in note for overnight resident to further provide patient protection in case of underlying unknown dependency. - Regardless would student counselor on alcohol avoidance as would help to aid improvement with gastritis and with reflux as well. - Also could aid in decreasing risk for head and neck cancers as already has independent risk factor for same with chewing tobacco use. Chest Pain - Negative trop, no risk factors outside of age for heart disease - ECG no signs of ischemia - Suspect from gastritis referred pain and/or musculoskeletal pain from wrenching from vomiting. - Will check lipids and HgbA1C for risk factor stratification as does not appear he has had this routine screening labs. Hgb A1C of 5.4; Lipid panel with Total Cholesterol 215, Triglycerides 151 LDL 135, HDL 50 - CXR negative for acute process. Hiatal hernia with GERD and esophagitis - as noted for risk factors for etiology for presumed gastritis and also cause of pain. Elevated Serum Creatinine - elevated Creatinine on admit of 1.43, with no known prior baseline but no known disease so presumed to be baseline of 1. - Consistent with history of fluid loss from vomiting/diarrhea with inability to tolerate PO intake - Has resolved s/p IVF hydration to value of 1.06 which is WNL this morning. Leukocytosis - improved today from 15 to 11. No signs of infectious cause, symptoms could be suggestive of Norovirus but no others he was around got sick which makes this unlikely. - suspect stress demargination from acute pain, vomiting. Abnormal Abdominal CT Scan - There are no acute infectious or inflammatory findings in the abdomen or pelvis. - Mild to moderate colonic diverticulosis without CT evidence of acute diverticulitis. - Indeterminant renal cortical hypodensities measure up to 1.7 cm. Follow-up with a nonemergent renal protocol CT or MRI is recommended for further assessment. Can be worked up as outpatient. Will relay in note for PCP. Will need to have follow up with PCP. - Moderate hiatal hernia. Code: Full FENGI: IVF stopped today, will check on to see if tolerating fluids and if so no current need for IVF; Pepcid 20mg IV BID; Pantoprazole 40mg PO BID, full liquid advance as tolerated DVT ppx: deemed low risk on admission and currently without mechanical or chemical. Would not prefer chemical as has risk factors for GI bleed. Dispo: Med surg; discharge home pending tolerance of PO intake and clinical improvement in symptoms. (2) Nausea & vomiting: (3) Chest pain: (4) Hiatal hernia with gastroesophageal reflux disease and esophagitis: (5) Elevated serum creatinine: (6) Leukocytosis: (7) Abnormal abdominal CT scan: (8) DVT prophylaxis: Admission and Anticipated Discharge Date Admission Date: February 01, 2021 Supervising Physician Co-Signing Physician Notes I personally examined the patient and verified all perez points of history and exam, discussed case, and agree with decision making with Dr Joel Feeling a good bit better at the time I see him, no nausea no abdominal pain. Unfortunately later whenever he eats he immediately feels quite nauseated and is not really able to eat successfully. vitals noted nad heent nc at mmm breathing unlabored no accessory uscles good effort abd soft mild distention nontender no guarding no rebound intractable nausea/vomiting -no need for emergent EGD --> med management for now -appears most likely in the family of PUD/gastritis from swallowing chew spit, NSAIDs, dehydration, hiatal hernia -acid suppression, anti-emetics, advance diet (unfortunately since he did not tolerate diet, we will need to continue to medically manage this and follow closely)if he is able to tolerate diet then will be on to send him home with close outpatient follow-up. -EGD warranted if any bleeding (none now), if we are unable to successfully get him eating and drinking well with medical management for presumed gastritis/PUD, or post discharge if he shows recurrent worsening/reaches a plateau of improvement/unable to successfully wean from medications Tobacco abuse -Counseled to quit Otherwise as above Subjective He notes that emesis has improved with anti-emetic treatments overnight. He also notes generally feeling improved. He states that he has a history of chewing tobacco and swallows his saliva rather than spit. He notes he started doing this in [facility] to be able to chew while in school and continued this habit. He notes he drinks Twisted Teas as well several times per week night, he notes he started drinking these recently. He notes he was out with friends at [facility] yesterday prior to onset of symptoms. He notes that he was very active outside hiking and did not drink much in terms of clear fluids for hydration. He notes he was excited by improved local weather and ability to get outside that he was distracted from staying well hydrated. He denies coffee drinking but endorses drinking Mountain Dew for daily caffeine morning intake. He denies seeing a PCP for routine screening. He notes he has had loose stools with the onset of vomiting that has improved. He denies any history of black or bloody BMs. 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 He denies any prior history of HTN or DM. Review of Systems Review of Systems: All systems reviewed & are unremarkable except as noted in HPI & below Physical Exam Constitutional: WD/WN, vitals as above cooperative and comfortable Eyes: PERRL, conjunctivae normal, anicteric sclerae ENMT: external ear and nose normal, oropharynx normal Neck: trachea midline, no thyromegaly Respiratory: normal respiratory effort, lungs clear to auscultation Cardiovascular: Rate/Rhythm: regular rate and regular rhythm Gastrointestinal (Abdomen): Percussion/Palpation: abdomen soft; abdomen nontender, no guarding and abdomen not rigid Musculoskeletal: Head/Neck/Chest: normocephalic and head atraumatic Skin: no rashes, warm and dry Neurologic: CN's II-XI intact bilaterally, moves all extremities and awake Psychiatric: A+Ox3, euthymic affect Eye Contact: good eye contact Results & Data Results & Data ([facility]) Vital Signs (Past 12 Hours) Vital Signs Temp Pulse Resp BP Pulse Ox 02/02/21 07:31 37.0 C 79 12 146/87 H 92 Laboratory Results Laboratory Results - last 24 hr 02/01/21 02/01/21 02/01/21 09:35 09:35 12:45 WBC RBC Hgb Hct MCV MCH MCHC RDW Std Deviation RDW Coeff of Benigno Plt Count MPV Immature Gran % (Auto) Neut % (Auto) Lymph % (Auto) Sabine % (Auto) Eos % (Auto) Baso % (Auto) Neut # (Auto) Lymph # (Auto) Sabine # (Auto) Eos # (Auto) Baso # (Auto) Immature Gran # (Auto) Sodium Potassium Chloride Carbon Dioxide Anion Gap BUN Creatinine Est Cr Clr Drug Dosing Est GFR ( Amer) Est GFR (Non-Af Amer) BUN/Creatinine Ratio Glucose Estimat Average Glucose Hemoglobin A1c Calcium Total Bilirubin AST ALT Alkaline Phosphatase Total Protein Albumin Globulin Albumin/Globulin Ratio Triglycerides Cholesterol LDL Cholesterol, Calc VLDL Cholesterol, Calc HDL Cholesterol Cholesterol/HDL Ratio Urine Opiates Screen Pos H U Codeine Confrm GC/MS Pending Ur Morphine (GC/MS) Pending Ur Hydrocodone (GC/MS) Pending Ur Norhydrocodone Pending Ur Noroxycodone Pending Urine Oxycodone (GC/MS) Pending U Oxymorphone GC/MS Pending Ur Methadone, Qual Neg Ur Hydromorphone (GC/MS) Pending Urine Barbiturates Neg Ur Phencyclidine (PCP) Neg U Amphetamin/Meth Scrn Neg MDMA (Ecstasy) Screen Neg U Benzodiazepines Scrn Neg Ur Cocaine Metabolite Neg U Marijuana (THC) Screen Pos H U Marijuana THC Carboxy Pending Drug Screen Comment Pending COVID-19 Eval [facility] SARS-CoV-2, RNA, NAAT 02/01/21 02/02/21 02/02/21 12:45 08:59 08:59 WBC 11.28 H RBC 4.58 L Hgb 14.7 Hct 42.9 MCV 93.7 MCH 32.1 MCHC 34.3 RDW Std Deviation 47.1 H RDW Coeff of Benigno 13.9 Plt Count 183 MPV 9.9 Immature Gran % (Auto) 0.2 Neut % (Auto) 78.0 Lymph % (Auto) 15.7 Sabine % (Auto) 5.6 Eos % (Auto) 0.2 Baso % (Auto) 0.3 Neut # (Auto) 8.81 H Lymph # (Auto) 1.77 Sabine # (Auto) 0.63 H Eos # (Auto) 0.02 Baso # (Auto) 0.03 Immature Gran # (Auto) 0.02 Sodium 144 Potassium 3.6 D Chloride 115 H Carbon Dioxide 25 Anion Gap 5.0 BUN 8 Creatinine 1.06 Est Cr Clr Drug Dosing 88.7 Est GFR ( Amer) 92.4 Est GFR (Non-Af Amer) 79.7 BUN/Creatinine Ratio 7.6 L Glucose 94 Estimat Average Glucose Hemoglobin A1c Calcium 8.2 L D Total Bilirubin 0.7 AST 20 ALT 25 Alkaline Phosphatase 82 Total Protein 6.4 D Albumin 3.4 Globulin 3.0 Albumin/Globulin Ratio 1.1 Triglycerides Cholesterol LDL Cholesterol, Calc VLDL Cholesterol, Calc HDL Cholesterol Cholesterol/HDL Ratio Urine Opiates Screen U Codeine Confrm GC/MS Ur Morphine (GC/MS) Ur Hydrocodone (GC/MS) Ur Norhydrocodone Ur Noroxycodone Urine Oxycodone (GC/MS) U Oxymorphone GC/MS Ur Methadone, Qual Ur Hydromorphone (GC/MS) Urine Barbiturates Ur Phencyclidine (PCP) U Amphetamin/Meth Scrn MDMA (Ecstasy) Screen U Benzodiazepines Scrn Ur Cocaine Metabolite U Marijuana (THC) Screen U Marijuana THC Carboxy Drug Screen Comment COVID-19 Eval Order SARS-CoV-2, RNA, NAAT NEGATIVE 02/02/21 02/02/21 08:59 08:59 WBC RBC Hgb Hct MCV MCH MCHC RDW Std Deviation RDW Coeff of Benigno Plt Count MPV Immature Gran % (Auto) Neut % (Auto) Lymph % (Auto) Sabine % (Auto) Eos % (Auto) Baso % (Auto) Neut # (Auto) Lymph # (Auto) Sabine # (Auto) Eos # (Auto) Baso # (Auto) Immature Gran # (Auto) Sodium Potassium Chloride Carbon Dioxide Anion Gap BUN Creatinine Est Cr Clr Drug Dosing Est GFR ( Amer) Est GFR (Non-Af Amer) BUN/Creatinine Ratio Glucose Estimat Average Glucose 108 Hemoglobin A1c 5.4 Calcium Total Bilirubin AST ALT Alkaline Phosphatase Total Protein Albumin Globulin Albumin/Globulin Ratio Triglycerides 151 H Cholesterol 215 H LDL Cholesterol, Calc 135 VLDL Cholesterol, Calc 30 HDL Cholesterol 50 Cholesterol/HDL Ratio 4 Urine Opiates Screen U Codeine Confrm GC/MS Ur Morphine (GC/MS) Ur Hydrocodone (GC/MS) Ur Norhydrocodone Ur Noroxycodone Urine Oxycodone (GC/MS) U Oxymorphone GC/MS Ur Methadone, Qual Ur Hydromorphone (GC/MS) Urine Barbiturates Ur Phencyclidine (PCP) U Amphetamin/Meth Scrn MDMA (Ecstasy) Screen U Benzodiazepines Scrn Ur Cocaine Metabolite U Marijuana (THC) Screen U Marijuana THC Carboxy Drug Screen Comment COVID-19 Eval Order SARS-CoV-2, RNA, NAAT Medications Administered Lactated Ringer's (Lr) 1,000 mls @ 150 mls/hr IV .[id number] [facility] Stop: 02/02/21 12:03 Last Admin: 02/02/21 06:31 Dose: 150 mls/hr Documented by: [id number] Infusion: 02/02/21 05:51 Dose: 150 mls/hr Documented by: [id number] Admin: 02/01/21 23:10 Dose: 150 mls/hr Documented by: [id number] Infusion: 02/01/21 23:09 Dose: 150 mls/hr Documented by: [id number] Admin: 02/01/21 16:28 Dose: 150 mls/hr Documented by: [id number] Resident Activity Tracking Resident Involvement: Resident Care Provided Care Provided: Adult Hospital Medicine (1) Leukocytosis Leukocytosis type: other Qualified Code(s): D72.828 - Other elevated white blood cell count
[2021-02-02] MEDS ORDERED: FAMOTIDINE 20 MG in SYRINGE 3 ML IV SCH (11:00)
--- NOTE | 2021-02-02 12:13 | Discharge Summary ---
Date of Service February 03, 2021 Admission HPI Per Admitting Provider Vlad Bravo is a 55-year-old male who presents to the ER with abdominal pain, intractable nausea and vomiting. He reports severe 10/10 chest pain coming on at 6:30 PM last night on the left side of his chest without radiation followed shortly by nausea and vomiting. This pain has been constant throughout the night and is continuing in the emergency room with any relief from morphine given. He he ate a corn beef and cabbage male 2 to 3 hours prior to the pain last night. He does note a similar episode 7 to 8 years ago which he thinks was secondary to his blood pressure. He denies any current medical problems such as diabetes, hypertension, hyperlipidemia. He does smoke marijuana 1-2 times a week for the last 20 years. He reports no prior episodes of cyclic vomiting syndrome related to this in the last smoked marijuana 1.5 weeks ago. In the ER CT abdomen pelvis was relatively unremarkable for acute inflammatory or infectious causes of his abdominal pain. However was notable for a moderate hiatal hernia which was incompletely imaged given no CT of his chest. Incidentally noted indeterminant renal cortical hypodensities measuring up to 1.7 cm -recommended nonemergent renal protocol CT or MRI for further assessment. Despite fluid resuscitation, ondansetron, Phenergan, morphine he continues to have nausea, vomiting, abdominal/chest pain therefore was referred to medicine for admission ongoing management of this. Admission Exam Per Admitting Provider Constitutional: + acute distress (Chest discomfort) and + ill appearing; + not well nourished Eyes: Right prosthetic eye ENMT: Mouth: + dry oral mucous membranes, + poor dentition and + chipped teeth Neck: trachea midline Respiratory: normal respiratory effort, lungs clear to auscultation Gastrointestinal (Abdomen): Inspection/Auscultation: abdomen normal to inspection and normal bowel sounds Percussion/Palpation: + abdomen tender (Generalized), + guarding and abdomen soft; abdomen not rigid Musculoskeletal: no cyanosis or clubbing, extremities motor strength 5/5 Skin: no rashes, warm and dry Neurologic: moves all extremities and awake; not confused Psychiatric: A+Ox3, euthymic affect Genitourinary: no CVA tenderness Principal Diagnosis Gastritis; esophagitis; GERD; Nausea and Vomiting; BRIANNA Discharge Exam Constitutional WD/WN, vitals as above cooperative and comfortable Eyes PERRL, conjunctivae normal, anicteric sclerae ENMT external ear and nose normal, oropharynx normal Neck trachea midline, no thyromegaly Respiratory normal respiratory effort, lungs clear to auscultation Cardiovascular Rate/Rhythm: regular rate and regular rhythm Gastrointestinal (Abdomen) Percussion/Palpation: abdomen soft; abdomen nontender, no guarding and abdomen not rigid Musculoskeletal Head/Neck/Chest: normocephalic and head atraumatic Skin no rashes, warm and dry Neurologic CN's II-XI intact bilaterally, moves all extremities and awake Psychiatric A+Ox3, euthymic affect Eye Contact: good eye contact Discharge Data Allergies Allergy/AdvReac Type Severity Reaction Status Date / Time No Known Allergies Allergy Unknown Verified 02/01/21 07:41 Consultations 02/01/21 12:21 ED Decision to Admit Stat Ordered Studies 02/01/21 07:22 CT abd pelvis IV con only Stat Abnormal Abdominal CT Scan - There are no acute infectious or inflammatory findings in the abdomen or pelvis. - Mild to moderate colonic diverticulosis without CT evidence of acute diverticulitis. - Indeterminant renal cortical hypodensities measure up to 1.7 cm. Follow-up with a nonemergent renal protocol CT or MRI is recommended for further assessment. Can be worked up as outpatient. Will relay in note for PCP. Will need to have follow up with PCP. - Moderate hiatal hernia. Hospital Course (1) Intractable epigastric abdominal pain: Mr. Vlad Bravo is a 55 y/o male h/o ventral hernia repair otherwise with no current chronic medical issues who presented for left chest pain, nausea, vomiting, diarrhea, and inability to maintain hydration from PO intake. Clinical picture for etiology suggested to be from gastritis with esophagitis. Numerous risk factors for aggravation of underlying disorder as outlined in more detail below. There was no current indication for inpatient EGD. Were planning to discharge home on 02/02 but failed oral intake of full liquid diet and required more time for gastritis to resolve. Plan will be for PPI outpatient treatment and to try to avoid exacerbating factors like swallowing chew spit. He was provided medication with Pantoprazole 40mg BID with recommendation for 4-8 weeks; Pepcid 20mg BID, was added for the next 1-2 weeks as well. If not improved then would recommend outpatient EGD. He was noted to have resolution of pain on discharge. He did have an abnormal finding on CT Abdomen that recommended follow up with Indeterminant renal cortical hypodensities measure up to 1.7 cm. Follow-up with a nonemergent renal protocol CT or MRI is recommend ed for further assessment. Can be worked up as outpatient. Intractable epigastric abdominal pain. - Resolved - Review of old EMR shows one visit for similar presentation in February 2007 with dx of gastritis. - Suspect symptoms are related to gastritis with esophagitis. - Many environmental factors that predispose him to reflux/gastritis: - hiatal hernia present, - swallows his chewing tobacco spit which is not typical for an average user - discussed that chewing tobacco with spiting and now swallowing will still exacerbate reflux and worsen gastritis, nevertheless a decades long history of swallowing carcinogen. It is highly recommended that he stop chewing tobacco as this would be very important to help keep this from worsening or be acute on chronic reoccurrences. 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 Recommend to avoid in acute setting. - Alcohol intake and acidic sugary Twisted Tea beverages. - Suspect with adequate education and cessation from triggers that symptoms would significantly improve. - He has not been on any treatment prior to presentation with ant-acids/PPI/H2 adalberto. Discussed that will still experiencing discomfort while mucosa heals. - Yesterday received Pantoprazole PPI 40mg IV x 1 and also Pepcid 20mg IV x 1; there were no continuation orders placed for this morning for continued gastric acid suppression. Will resume Pepcid 20mg IV until discharge or improved. - GI was consulted on admission, consideration for possible EGD to evaluate for gastritis/etiology of current illness. Was made NPO since midnight on admit. was given IVF LR @ 150ml/hr. Clinical picture this morning does not indicate need for in-hospital GI consult as no indication for urgent/emergent EGD as no signs of bleeding. Plan will be to advance diet as tolerated and if can tolerate will go home on PPI and H2 with hospital follow up for resolution. - Has had morphine IV ordered for pain since NPO, last required was yesterday (02/01) around 2pm. Does not appear to need further opioids for pain. Discussed that he will experience discomfort while stomach mucosa heals. Nausea and Vomiting - Resolved - appears improving with controlled nausea this AM and with decreased emesis frequency. - Yesterday received Zofran 4mg IV in AM, then Promethazine 12.5mg IV yesterday morning as well. Was given Lorazepam 1mg IV at 2pm yesterday which he notes helped to improve nausea. - Suspect secondary to gastritis with multifactorial from displaced anatomy of hiatal hernia which causes functional physiology. Continue to monitor. Will need to ensure can take PO prior to discharge. - Will provide Zofran 4mg ODT on discharge. Chest Pain - Resolved with gastritis treatment - Negative trop, no risk factors outside of age for heart disease - ECG no signs of ischemia - Suspect from gastritis - Will check lipids and HgbA1C for risk factor stratification as does not appear he has had this routine screening labs. Hgb A1C of 5.4; Lipid panel with Total Cholesterol 215, Triglycerides 151 LDL 135, HDL 50 - CXR negative for acute process. Hiatal hernia with GERD and esophagitis - as noted for risk factors for etiology for presumed gastritis and also cause of pain. Elevated Serum Creatinine - elevated Creatinine on admit of 1.43, with no known prior baseline but no known disease so presumed to be baseline of 1. - Consistent with history of fluid loss from vomiting/diarrhea with inability to tolerate PO intake - Has resolved s/p IVF hydration to value of 1.06 which is WNL on discharge. Leukocytosis - resolved - improved today from 15 to WNL on discharge. No signs of infectious cause, symptoms could be suggestive of Norovirus but no others he was around got sick which makes this unlikely. - suspect stress demargination from acute pain, vomiting. Abnormal Abdominal CT Scan - There are no acute infectious or inflammatory findings in the abdomen or pelvis. - Mild to moderate colonic diverticulosis without CT evidence of acute diverticulitis. - Indeterminant renal cortical hypodensities measure up to 1.7 cm. Follow-up with a nonemergent renal protocol CT or MRI is recommended for further assessment. Can be worked up as outpatient. Will relay in note for PCP. Will need to have follow up with PCP. - Moderate hiatal hernia. Code: Full FENGI: Normal diet on dischrge; PPI and H2 adalberto noted above. DVT ppx: deemed low risk on admission and currently without mechanical or chemical. Would not prefer chemical as has risk factors for GI bleed. SCDs were ordered during stay. Dispo: Med surg (2) Nausea & vomiting: (3) Chest pain: (4) Hiatal hernia with gastroesophageal reflux disease and esophagitis: (5) Elevated serum creatinine: (6) Leukocytosis: (7) Abnormal abdominal CT scan: (8) DVT prophylaxis: Total Time Total Time Spent Total Time Spent (In Minutes): 35 Total Time Includes: Examination of the Patient and Discharge Planning Discharge Plan Discharge Items Patient Disposition: Home - Self-Care Reason For Visit: chest pain,hard to breathe Discharge Diagnosis: Gastritis; esophagitis with GERD; Nausea/vomiting; BRIANNA Activity: Per Instructions section Non-emergency contact: Primary Care Provider Call non-emergency contact if: you have any medication questions, your symptoms worsen, your pain is not controlled, your pain is worsening and your pain is concerning for you Follow-up/Referrals: Nelida Bryant MD [Primary Care Provider] - Diet: Regular Addtl Attending Provider Instructions: You were found to have inflammation of the stomach (gastritis) and esophagus (esophagitis), as most likely cause for your pain and vomiting. You will need to continue a medication that stops acid production in the stomach called Pantoprazole 40mg pill. You will take this medication, one pill, two times a day (AM/PM) for at least 4-8 weeks or unless directed okay to stop by your Primary Care Physician. This medication will turn off acid production to help the lining of your stomach and esophagus to heal. You will still experience some discomfort while the lining of your stomach and esophagus heal. A paper prescription has been printed for you. You will also be given a prescription for another medication to help turn off acid production that works in a different mechanism. This medication is called Famotidine 20mg (Pepcid), take one pill, twice per day (AM/PM). This medication should be used for at least one week to aid in quicker recovery. It is important to continue with medication even if pain improves as pain will resolved prior to completion of healing of the lining of stomach. There are certain triggers that if you could stop or cut back would improve your symptoms and prevent another occurrence. Swallowing the chewing tobacco saliva is very irritating to the stomach which increases acid production, directly damages the gastric lining. If you could stop chewing tobacco, this will be of significant benefit to your quality of life. You should try to definitely stop swallowing the saliva. This is very dangerous since you have been doing this for many decades. Also try bland foods while recovering, avoid acidic foods, avoid alcohol as this can worsen your reflux causing esophagitis. A prescription for medication for nausea and vomiting is provided. Medication is called Zofran 4mg pill which is dissolvable under the tongue. Only take this medication if you feel nauseated. Please follow up with Dr. Bryant in [place] for [facility] Follow up. It was recommended that you get a follow up image of your kidneys as there were incidental findings found on the CT imaging of your abdomen. Imaging showed some hypodensities in the cortical part of your kidney. Radiology recommended a follow up MRI or CT renal protocol. This is likely unrelated to your current illness. This is non-emergent and can be discussed with your Primary Care Provider. Also following up with your Primary Care Provider will help guide outpatient course of your treatment with goal to prevent need for re-admission to hospital. If you are experiencing return of pain, the pain is concerning for you, pain worsens, you notice black or bloody stools, you are unable to tolerate fluids/food without vomiting, please return here to [facility] ED for evaluation or seek emergent medical evaluation/treatment. Pending Studies at Discharge: No Stand-Alone Forms: My [employer], Smoking Cessation Medications and DC Order Prescriptions: New ondansetron 4 mg tablet,disintegrating 4 mg PO Q8H PRN (Reason: nausea and vomiting) 5 Days Qty: 15 RF: 0 famotidine 20 mg tablet 20 mg PO BID 15 Days Qty: 30 RF: 0 pantoprazole 40 mg tablet,delayed release (DR/EC) 40 mg PO BID 30 Days Qty: 60 RF: 0 No Action No Known Home Medications RF: 0 Krames/Other Patient Handouts: Primer: Smokeless Tobacco, What Is GERD?, What Is a Hiatal Hernia?, Medicines for GERD, Medicines for Acid Reflux, Understanding Smokeless Tobacco Admission Data Admit Date/Time: 02/01/21 13:31 Attending Provider: Donavan Madison Admit Provider: Huey Luis Primary Care Provider: Nelida Bryant Other Providers: Huey Luis Resident Activity Tracking Resident Involvement: Resident Care Provided Care Provided: Adult [facility] Medicine
[2021-02-02] MEDS: MoRPHine SULFATE 4 MG/ML 1 ML CARP\\VIAL IV PRN ×4 (12:49→21:40)
[2021-02-02] MEDS ORDERED: LORazepam 0.5 MG/1 ML VIAL IV STA (13:38)
[2021-02-02] MEDS ORDERED: ONDANSETRON INJ 2 MG/ML 2 ML VIAL IV SCH (13:45)
--- NOTE | 2021-02-02 16:23 | Billing Data ---
Date of Service February 02, 2021 Coding Level of Care Code 88351 Subseq Obs Care Lvl 3
[2021-02-02] MEDS: ONDANSETRON INJ 2 MG/ML 2 ML VIAL IV SCH (17:42)
[2021-02-02] MEDS ORDERED: MoRPHine SULFATE 2 MG/ML CARP IV STA (19:29)
[2021-02-02] MEDS ORDERED: MoRPHine SULFATE 2 MG/ML CARP ONE (19:36)
[2021-02-02] MEDS: PANTOprazole 40 MG TAB PO SCH (20:49)
[2021-02-02] MEDS: FAMOTIDINE 20 MG in SYRINGE 3 ML IV SCH (20:49)
[2021-02-03] MEDS: ONDANSETRON INJ 2 MG/ML 2 ML VIAL IV SCH ×2 (00:50→05:48)
[2021-02-03 06:21] LABS: Basophils # (auto) 0.03 K/uL (0-0.2); Basophils % (auto) 0.3 %; Eosinophils # (auto) 0.03 K/uL (0-0.5); Eosinophils % (auto) 0.3 %; Hematocrit (blood only) 40.2 % (42-52); Immature Granulocytes # (auto) 0.01 K/uL (0.00-0.02); Immature Granulocytes % (auto) 0.1 %; Lymphocytes # (auto) 2.33 K/uL (1.2-3.4); Lymphocytes % (auto) 25.6 %; Mean Corpuscular Hemoglobin 32.4 pg (25-34); Mean Corpuscular Hgb Conc 34.8 g/dL (32-36); Mean Corpuscular Volume 93.1 fL (80-100); Monocytes # (auto) 0.76 K/uL (0.11-0.59); Monocytes % (auto) 8.4 %; Neutrophils # (auto) 5.93 K/uL (1.4-6.5); Neutrophils % (auto) 65.3 %; Platelet Count 185 K/uL (130-400); RDW Coefficient of Variation 13.4 % (11.5-14.5); RDW Standard Deviation 45.7 fL (36.4-46.3); Red Blood Count 4.32 M/uL (4.7-6.1); White Blood Count 9.09 K/uL (4.8-10.8)
[2021-02-03 06:53] LABS: Albumin Level 3.2 gm/dl (3.4-5.0); BUN Creatinine Ratio 9.7 (10-20); Calcium 8.1 mg/dl (8.5-10.1); Creatinine Clr Calc Pharmacy 103.4 ml/min; Est GFR (African American) 111.1; Est GFR (Non-African American) 95.9; Potassium 3.5 mmol/L (3.5-5.1)
[2021-02-03 06:56] LABS: Albumin Globulin Ratio 1.1 (0.9-2); Bilirubin,Total 0.7 mg/dl (0.2-1); Globulin 2.9 gm/dl (2.5-4.0); Total Protein 6.1 gm/dl (6.4-8.2)
[2021-02-03] MEDS: PANTOprazole 40 MG TAB PO SCH (08:35)
[2021-02-03] MEDS: FAMOTIDINE 20 MG in SYRINGE 3 ML IV SCH (08:35)
--- NOTE | 2021-02-03 12:35 | Discharge Summary ---
Date of Service February 03, 2021 Admission HPI Per Admitting Provider Vlad Bravo is a 55-year-old male who presents to the ER with abdominal pain, intractable nausea and vomiting. He reports severe 10/10 chest pain coming on at 6:30 PM last night on the left side of his chest without radiation followed shortly by nausea and vomiting. This pain has been constant throughout the night and is continuing in the emergency room with any relief from morphine given. He he ate a corn beef and cabbage male 2 to 3 hours prior to the pain last night. He does note a similar episode 7 to 8 years ago which he thinks was secondary to his blood pressure. He denies any current medical problems such as diabetes, hypertension, hyperlipidemia. He does smoke marijuana 1-2 times a week for the last 20 years. He reports no prior episodes of cyclic vomiting syndrome related to this in the last smoked marijuana 1.5 weeks ago. In the ER CT abdomen pelvis was relatively unremarkable for acute inflammatory or infectious causes of his abdominal pain. However was notable for a moderate hiatal hernia which was incompletely imaged given no CT of his chest. Incidentally noted indeterminant renal cortical hypodensities measuring up to 1.7 cm -recommended nonemergent renal protocol CT or MRI for further assessment. Despite fluid resuscitation, ondansetron, Phenergan, morphine he continues to have nausea, vomiting, abdominal/chest pain therefore was referred to medicine for admission ongoing management of this. Admission Exam Per Admitting Provider Constitutional: + acute distress (Chest discomfort) and + ill appearing; + not well nourished Eyes: Right prosthetic eye ENMT: Mouth: + dry oral mucous membranes, + poor dentition and + chipped teeth Neck: trachea midline Respiratory: normal respiratory effort, lungs clear to auscultation Gastrointestinal (Abdomen): Inspection/Auscultation: abdomen normal to inspection and normal bowel sounds Percussion/Palpation: + abdomen tender (Generalized), + guarding and abdomen soft; abdomen not rigid Musculoskeletal: no cyanosis or clubbing, extremities motor strength 5/5 Skin: no rashes, warm and dry Neurologic: moves all extremities and awake; not confused Psychiatric: A+Ox3, euthymic affect Genitourinary: no CVA tenderness Principal Diagnosis Gastritis; Nausea and Vomiting; BRIANNA Discharge Exam Constitutional WD/WN, vitals as above cooperative and comfortable Eyes right eye prothesis; left eye no abnormalities to inspection ENMT external ear and nose normal, oropharynx normal Neck trachea midline, no thyromegaly Respiratory normal respiratory effort, lungs clear to auscultation Cardiovascular Rate/Rhythm: regular rate and regular rhythm Gastrointestinal (Abdomen) Percussion/Palpation: abdomen soft; abdomen nontender, no guarding and abdomen not rigid Musculoskeletal Head/Neck/Chest: normocephalic and head atraumatic Skin no rashes, warm and dry Neurologic CN's II-XI intact bilaterally, moves all extremities and awake Psychiatric A+Ox3, euthymic affect Eye Contact: good eye contact Discharge Data Allergies Allergy/AdvReac Type Severity Reaction Status Date / Time No Known Allergies Allergy Unknown Verified 02/01/21 07:41 Consultations 02/01/21 12:21 ED Decision to Admit Stat Ordered Studies 02/01/21 07:22 CT abd pelvis IV con only Stat 1. There are no acute infectious or inflammatory findings in the abdomen or pelvis. 2. Mild to moderate colonic diverticulosis without CT evidence of acute diverticulitis. 3. Indeterminant renal cortical hypodensities measure up to 1.7 cm. Follow-up with a nonemergent renal protocol CT or MRI is recommended for further assessment. 4. Moderate hiatal hernia. CXR: NAD Hospital Course (1) Intractable epigastric abdominal pain: Mr. Vlad Bravo is a 55 y/o male h/o ventral hernia repair otherwise with no current chronic medical issues who presented for left chest pain, nausea, vomiting, diarrhea, and inability to maintain hydration from PO intake. Clinical picture for etiology suggested to be from gastritis with esophagitis. Numerous risk factors for aggravation of underlying disorder as outlined in more detail below. There was no current indication for inpatient EGD. Were planning to discharge home on 02/02 but failed oral intake of full liquid diet and required more time for gastritis to resolve. Plan will be for PPI outpatient treatment and to try to avoid exacerbating factors like swallowing smokeless to bacco secretions. - He was provided medication with Pantoprazole 40mg BID with recommendation for 4-8 weeks; Pepcid 20mg BID, was added for the next 1-2 weeks as well. - If pain not improved by Thursday (02/08)/or returns with current treatment, then would recommend outpatient EGD/GI consult. - He was noted to have resolution of pain on discharge and requested to go home; He did not want to trial a regular diet because of apprehension but notes going on full liquid is a common reoccurrence which he normally deals with at home. - He did have an abnormal finding on CT Abdomen that recommended follow up with Indeterminant renal cortical hypodensities measure up to 1.7 cm. Follow-up with a nonemergent renal protocol CT or MRI is recommended for further assessment. Can be worked up as outpatient. Detailed Hospital Course below: Intractable epigastric abdominal pain. - Resolved - Review of old EMR shows one visit for similar presentation in February 2007 with dx of gastritis. - Suspect symptoms are related to gastritis with esophagitis. - Many environmental factors that predispose him to reflux/gastritis: - hiatal hernia present, - swallows his chewing tobacco spit which is not typical for an average user - discussed that chewing tobacco with spiting and now swallowing will still exacerbate reflux and worsen gastritis, nevertheless a decades long history of swallowing carcinogen. It is highly recommended that he stop chewing tobacco as this would be very important to help keep this from worsening or be acute on chronic reoccurrences. 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 Recommend to avoid in acute setting. - Alcohol intake and acidic sugary Twisted Tea beverages. - Suspect with adequate education and cessation from triggers that symptoms would significantly improve. - He has not been on any treatment prior to presentation with ant-acids/PPI/H2 adalberto. Discussed that will still experiencing discomfort while mucosa heals. - 02/01 received Pantoprazole PPI 40mg IV x 1 and also Pepcid 20mg IV x 1; there were no continuation orders placed for this morning for continued gastric acid suppression. Will resume Pepcid 20mg IV until discharge or improved. - GI was consulted on admission, consideration for possible EGD to evaluate for gastritis/etiology of current illness. Was made NPO since midnight on admit. was given IVF LR @ 150ml/hr. Clinical picture this morning does not indicate need for in-hospital GI consult as no indication for urgent/emergent EGD as no signs of bleeding. Plan will be to advance diet as tolerated and if can tolerate will go home on PPI and H2 with hospital follow up for resolution. - Has had morphine IV ordered for pain since NPO, last required was yesterday (02/01) around 2pm. Does not appear to need further opioids for pain. Discussed that he will experience discomfort while stomach mucosa heals. Nausea and Vomiting - Resolved - appears improving with controlled nausea this AM and with decreased emesis frequency. - Yesterday received Zofran 4mg IV in AM, then Promethazine 12.5mg IV yesterday morning as well. Was given Lorazepam 1mg IV at 2pm yesterday which he notes helped to improve nausea. - Suspect secondary to gastritis with multifactorial from displaced anatomy of hiatal hernia which causes functional physiology. Continue to monitor. Will need to ensure can take PO prior to discharge. - Will provide Zofran 4mg ODT on discharge. Chest Pain - Resolved with gastritis treatment - Negative trop, no risk factors outside of age for heart disease - ECG no signs of ischemia - Suspect from gastritis - Will check lipids and HgbA1C for risk factor stratification as does not appear he has had this routine screening labs. Hgb A1C of 5.4; Lipid panel with Total Cholesterol 215, Triglycerides 151 LDL 135, HDL 50 - CXR negative for acute process. Hiatal hernia with GERD and esophagitis - as noted for risk factors for etiology for presumed gastritis and also cause of pain. Elevated Serum Creatinine - elevated Creatinine on admit of 1.43, with no known prior baseline but no known disease so presumed to be baseline of 1. - Consistent with history of fluid loss from vomiting/diarrhea with inability to tolerate PO intake - Has resolved s/p IVF hydration to value of 1.06 which is WNL on discharge. Leukocytosis - resolved - improved today from 15 to WNL on discharge. No signs of infectious cause, symptoms could be suggestive of Norovirus but no others he was around got sick which makes this unlikely. - suspect stress demargination from acute pain, vomiting. Abnormal Abdominal CT Scan - There are no acute infectious or inflammatory findings in the abdomen or pelvis. - Mild to moderate colonic diverticulosis without CT evidence of acute diverticulitis. - Indeterminant renal cortical hypodensities measure up to 1.7 cm. Follow-up with a nonemergent renal protocol CT or MRI is recommended for further assessment. Can be worked up as outpatient. Will relay in note for PCP. Will need to have follow up with PCP. - Moderate hiatal hernia. Code: Full FENGI: Normal diet on dischrge; PPI and H2 adalberto noted above. DVT ppx: deemed low risk on admission and currently without mechanical or chemical. Would not prefer chemical as has risk factors for GI bleed. SCDs were ordered during stay. Dispo: Med surg (2) Nausea & vomiting: (3) Chest pain: (4) Hiatal hernia with gastroesophageal reflux disease and esophagitis: (5) Elevated serum creatinine: (6) Leukocytosis: (7) Abnormal abdominal CT scan: (8) DVT prophylaxis: Total Time Total Time Spent Total Time Spent (In Minutes): Less than 30 Total Time Includes: Examination of the Patient, Discharge Planning and Medication Reconciliation Discharge Plan Discharge Items Patient Disposition: Home - Self-Care Reason For Visit: chest pain,hard to breathe Discharge Diagnosis: Gastritis; esophagitis with GERD; Nausea/vomiting; BRIANNA Activity: Per Instructions section Non-emergency contact: Primary Care Provider Call non-emergency contact if: you have any medication questions, your symptoms worsen, your pain is not controlled, your pain is worsening and your pain is concerning for you Follow-up/Referrals: Nelida Bryant MD [Primary Care Provider] - Diet: Regular Addtl Attending Provider Instructions: You were found to have inflammation of the stomach (gastritis) and esophagus (esophagitis), as most likely cause for your pain and vomiting. You will need to continue a medication that stops acid production in the stomach called Pantoprazole 40mg pill. You will take this medication, one pill, two times a day (AM/PM) for at least 4-8 weeks or unless directed okay to stop by your Primary Care Physician. This medication will turn off acid production to help the lining of your stomach and esophagus to heal. You will still experience some discomfort while the lining of your stomach and esophagus heal. A paper prescription has been printed for you. You will also be given a prescription for another medication to help turn off acid production that works in a different mechanism. This medication is called Famotidine 20mg (Pepcid), take one pill, twice per day (AM/PM). This medication should be used for at least one week to aid in quicker recovery. It is important to continue with medication even if pain improves as pain will resolved prior to completion of healing of the lining of stomach. There are certain triggers that if you could stop or cut back would improve your symptoms and prevent another occurrence. Swallowing the chewing tobacco saliva is very irritating to the stomach which increases acid production, directly damages the gastric lining. If you could stop chewing tobacco, this will be of significant benefit to your quality of life. You should try to definitely stop swallowing the saliva. This is very dangerous since you have been doing this for many decades. Also try bland foods while recovering, avoid acidic foods, avoid alcohol as this can worsen your reflux causing esophagitis. A prescription for medication for nausea and vomiting is provided. Medication is called Zofran 4mg pill which is dissolvable under the tongue. Only take this medication if you feel nauseated. Please follow up with Dr. Bryant in [place] [facility] Follow up. It was recommended that you get a follow up image of your kidneys as there were incidental findings found on the CT imaging of your a bdomen. Imaging showed some hypodensities in the cortical part of your kidney. Radiology recommended a follow up MRI or CT renal protocol. This is likely unrelated to your current illness. This is non-emergent and can be discussed with your Primary Care Provider. Also following up with your Primary Care Provider will help guide outpatient course of your treatment with goal to prevent need for re-admission to hospital. If you are experiencing return of pain, the pain is concerning for you, pain worsens, you notice black or bloody stools, you are unable to tolerate fluids/food without vomiting, please return here to [facility] for evaluation or seek emergent medical evaluation/treatment. If your pain has not improved with current treatment or gets worse, we recommend that you see a Gastro-Intestinal Physician for an EGD procedure where the stomach can be visualized with a scope to help identifying cause and to help ensure appropriate treatment is provided. To Sum: Medications Pantoprazole 40mg pill, take one pill, twice a day (AM/PM), will take for 4-8 weeks approximately. Famotidine 20mg pill, take one pill, twice a day (AM/PM), will take approximately 1-2 weeks but may be longer. Zofran 4mg dissolvable, take one pill, every 6 hours for nausea, take only as needed for nausea. Plan: Follow up with Dr. Bryant's office to help manage and ensure resolution of your current illness. - We will send your hospital records to their office. - If pain not improved by this Thursday, or worsens - we recommend you see a [facility] (GI) provider/physician for evaluation or possible EGD procedure to visualize the source of your pain the stomach. You can get a referral from your Primary Care Provider - Dr. Bryant's office. - Please stop using smokeless tobacco, discuss possible options with your Primary Care Provider for help. We will be cheering you and know that you can be successful with this, we believe in you! Pending Studies at Discharge: No Stand-Alone Forms: My [facility], Smoking Cessation Medications and DC Order Prescriptions: New ondansetron 4 mg tablet,disintegrating 4 mg PO Q8H PRN (Reason: nausea and vomiting) 5 Days Qty: 15 RF: 0 famotidine 20 mg tablet 20 mg PO BID 15 Days Qty: 30 RF: 0 pantoprazole 40 mg tablet,delayed release (DR/EC) 40 mg PO BID 30 Days Qty: 60 RF: 0 No Action No Known Home Medications RF: 0 Discharge Orders: Discharge Order (Routine); Ordered 02/03/21 Ordered By: Addison Gilliland/Other Patient Handouts: What Is a Hiatal Hernia?, Understanding Gastritis, Understanding Smokeless Tobacco Admission Data Admit Date/Time: 02/01/21 13:31 Attending Provider: Donavan Madison Admit Provider: Heuy Luis Primary Care Provider: Nelida Bryant Other Providers: Huey Luis Other Interventions: Discharge Summary Assessment (RN) Last Done: 02/03/21 14:04 Supervising Physician Co-Signing Physician Notes I personally examined the patient and verified all perez points of history and exam, discussed case, and agree with decision making with Dr Joel Feeling okay, did not allow diet to be advanced because he is afraid that eating real food might cause pain, at the same time he is tolerating full liquids just fine. He then notes that at times at home he reverts to a liquid diet sometimes for weeks at a time. Notes that he does not want to feel that nausea vitals noted nad heent nc at mmm breathing unlabored no accessory uscles good effort abd soft mild distention nontender no guarding no rebound intractable nausea/vomiting -Has improved to where he is tolerating a full liquid diet well, and refuses further advancement. We discussed trial of advancement, but he notes he is afraid that it will make him feel sick, and that if he feels sick that will make him mad. We discussed that if he was truly stalled out at only being able to tolerate a liquid diet, then I would want to move more expeditiously to EGD, but given that he notes that he sometimes does this at home too, it is not clear how much of it is from actual abdominal pain versus fear of abdominal pain. As his exam is benign, and work-up is overall very stable, I do feel it safe to send him home on acid suppression and antiemetics, but we discussed a "line in the sand" of Thursday as it relates to when it would be time to consider EGD if he is not able to tolerate a regular diet. He is also to follow-up with his PCP this week. Tobacco abuse -Counseled to quit Otherwise as above Resident Activity Tracking Resident Involvement: Resident Care Provided Care Provided: Adult Hospital Medicine
[2021-02-03] MEDS ORDERED: ONDANSETRON INJ 2 MG/ML 2 ML VIAL IV PRN (14:00)
--- NOTE | 2021-02-03 17:51 | Billing Data ---
Date of Service February 03, 2021 Coding Level of Care Code 25680 OBS Care - Discharge
[2021-02-04 15:31] LABS: Codeine Urine NEGATIVE ng/mL (<50); Hydrocodone Urine NEGATIVE ng/mL (<50); Hydromor Urine NEGATIVE ng/mL (<50); Marijuana Quant, GCMS Urine 2730 ng/mL (<5); Morphine Urine 6850 ng/mL (<50); Norhydrocodone Conf Ur NEGATIVE ng/mL (<50); Noroxycodone Urine NEGATIVE ng/mL (<50); Oxycodone Urine NEGATIVE ng/mL (<50); Oxymorph Urine NEGATIVE ng/mL (<50)
== END 2021-02-03 14:57 | disposition home or self-care (01) ==
LOC: ED 07:04 → 3N 07:04 → SUATTDRO 13:31 → 3N 14:39